=== PATIENT | female | born 1985 | race Caucasian/White ===

== ENCOUNTER 2019-04-18 06:04 | Inpatient (IN) ==
[2019-04-18] MEDS ORDERED: Famotidine 20 MG/2 ML VIAL IVP PRN (06:05)
[2019-04-18] MEDS ORDERED: Naloxone 0.4 MG/ML INJ IVP PRN (06:05)
[2019-04-18] MEDS ORDERED: Metoclopramide 10 MG/2 ML VIAL IVP PRN ×2 (06:05→11:38)
[2019-04-18] MEDS ORDERED: Ringers Solution, Lactated 1,000 ML IVC ONE (06:08)
[2019-04-18] MEDS ORDERED: Ringers Solution, Lactated 1,000 ML IVC SCH (06:15)
[2019-04-18] MEDS ORDERED: Ringers Solution, Lactated 1,000 ML ONE ×2 (06:22→07:52)
[2019-04-18 06:41] LABS: Hematocrit 34.3 % (35.3-44.9); Hemoglobin 11.7 g/dL (11.5-15.4); Immature Platelets 7.5 % (1.1-6.1); Mean Corpuscular HGB Conc 34.1 g/dL (31.6-35.5); Mean Corpuscular Hemoglobin 27.9 pg (28.0-33.3); Mean Corpuscular Volume 81.7 fL (83.0-100.0); Mean Platelet Volume 11.4 fL (9.4-12.4); Platelet Count 200 K/mcL (140-400); Red Cell Distribution Width 13.2 % (11.5-14.5); White Blood Count 7.9 K/mcL (4.3-11.1)
[2019-04-18 06:42] LABS: Basophils % 0.5 %; Eosinophils # 0.2 K/mcL (0.0-0.6); Immature Granulocytes % 0.6 % (0-4); Lymphocytes % 25.1 %; Monocytes # 0.5 K/mcL (0.0-1.3); Monocytes % 5.8 %; Neutrophils # 5.1 K/mcL (1.6-8.9)
[2019-04-18] MEDS ORDERED: CeFAZolin Premix DUPLEX 2,000 MG/50 ML BAG IVPB ONE (06:56)
[2019-04-18] MEDS ORDERED: *HR* Morphine Sulfate/PF 10 MG/10 ML AMPUL ONE (07:19)
[2019-04-18] MEDS ORDERED: EPHEDrine 50 MG/ML VIAL ONE (07:19)
[2019-04-18] MEDS ORDERED: *HR* FentaNYL (PF) 100 MCG/2 ML VIAL ONE (07:19)
[2019-04-18] MEDS ORDERED: *HR* Phenylephrine 10 MG/ML VIAL ONE (07:20)
[2019-04-18] MEDS ORDERED: Ondansetron 4 MG/2 ML VIAL ONE (07:20)
[2019-04-18] MEDS ORDERED: *HR* Oxytocin 10 UNIT/ML VIAL IM ONE (07:20)
[2019-04-18] MEDS ORDERED: Ondansetron 4 MG/2 ML VIAL IVP ONE (07:37)
[2019-04-18] MEDS ORDERED: *HR* Promethazine 25 MG/ML VIAL IVP PRN (07:37)
[2019-04-18] MEDS ORDERED: Ketorolac 30 MG/ML VIAL IVP ONE (07:37)
[2019-04-18] MEDS ORDERED: *HR* OxyCODONE Immed Rel 5 MG TABLET PO PRN (07:37)
[2019-04-18] MEDS ORDERED: *HR* HYDROmorphone (PF) 1 MG/ML SYRINGE IVP PRN (07:37)
[2019-04-18 07:44] LABS: Amphetamine Screen,Urine Negative ng/mL (Cutoff=1000); Barbiturate Screen,Urine Negative ng/mL (Cutoff=200); Benzodiazepines Screen,Urine Negative ng/mL (Cutoff=200); Cannabinoid Screen,Urine Negative ng/mL (Cutoff = 50); Cocaine Screen,Urine Negative ng/mL (Cutoff= 300); Opiate Screen,Urine Negative ng/mL (Cutoff=300); Phencyclidine Screen,Urine Negative ng/mL (Cutoff=25)
[2019-04-18] MEDS ORDERED: Bupivacaine/EPI 1:200k 0.25%PF 10 ML VIAL INFILT ONE (09:07)
[2019-04-18] MEDS ORDERED: Ketorolac 30 MG/ML VIAL ONE (09:09)
[2019-04-18] MEDS ORDERED: Oxytocin 20 units/ LR 1000 mL 20 UNIT/1,000 ML BAG IVC ONE (09:36)
[2019-04-18] MEDS ORDERED: Ondansetron 4 MG/2 ML VIAL IVP PRN (11:38)
[2019-04-18] MEDS ORDERED: Oxytocin 20 units/ LR 1000 mL 20 UNIT/1,000 ML BAG IVC SCH (11:38)
[2019-04-18] MEDS ORDERED: Rho Immune Globulin 1,500 UNIT SYRINGE IM ONE (11:38)
[2019-04-18] MEDS ORDERED: Sennosides 8.6 MG TABLET PO PRN (11:38)
[2019-04-18] MEDS: Acetaminophen 325 MG TABLET PO SCH ×2 (12:07→18:05)
[2019-04-18] MEDS: *HR* OxyCODONE/APAP 5/325 TABLET PO PRN ×2 (14:50→20:26)
[2019-04-18] MEDS: Simethicone 80 MG TAB.CHEW PO SCH ×2 (14:51→20:26)
[2019-04-18] MEDS: Ketorolac 30 MG/ML VIAL IVP SCH ×2 (15:50→18:51)
[2019-04-19] MEDS: *HR* OxyCODONE/APAP 5/325 TABLET PO PRN ×5 (00:37→22:27)
[2019-04-19] MEDS: Acetaminophen 325 MG TABLET PO SCH ×4 (00:37→21:09)
[2019-04-19] MEDS: Ketorolac 30 MG/ML VIAL IVP SCH (02:32)
[2019-04-19 07:01] LABS: Basophils % 0.4 %; Eosinophils # 0.3 K/mcL (0.0-0.6); Eosinophils % 4.6 %; Hematocrit 28.1 % (35.3-44.9); Immature Granulocytes % 0.5 % (0-4); Lymphocytes # 1.5 K/mcL (0.6-4.6); Lymphocytes % 19.5 %; Mean Corpuscular HGB Conc 32.7 g/dL (31.6-35.5); Mean Corpuscular Hemoglobin 27.5 pg (28.0-33.3); Mean Corpuscular Volume 84.1 fL (83.0-100.0); Mean Platelet Volume 10.9 fL (9.4-12.4); Monocytes # 0.6 K/mcL (0.0-1.3); Monocytes % 7.5 %; Platelet Count 197 K/mcL (140-400); Red Blood Count 3.34 M/mcL (3.82-4.97); Red Cell Distribution Width 13.2 % (11.5-14.5); Segmented Neutrophils % 67.5 %; White Blood Count 7.4 K/mcL (4.3-11.1)
[2019-04-19 07:03] LABS: Hemoglobin 9.2 g/dL (11.5-15.4)
[2019-04-19] MEDS: Prenatal Vit/FA 1 EACH TABLET PO SCH (09:00)
[2019-04-19] MEDS: Ibuprofen 600 MG TABLET PO SCH ×3 (09:00→21:12)
[2019-04-19] MEDS: Simethicone 80 MG TAB.CHEW PO SCH ×3 (09:39→21:10)
[2019-04-20] MEDS: *HR* OxyCODONE/APAP 5/325 TABLET PO PRN ×2 (03:05→09:33)
[2019-04-20] MEDS: Ibuprofen 600 MG TABLET PO SCH ×2 (03:05→09:32)
[2019-04-20] MEDS: Acetaminophen 325 MG TABLET PO SCH (06:34)
[2019-04-20 07:44] VITALS: BP 129/72
[2019-04-20] MEDS: Prenatal Vit/FA 1 EACH TABLET PO SCH (09:32)
[2019-04-20] MEDS: Simethicone 80 MG TAB.CHEW PO SCH (09:32)
== END 2019-04-20 13:00 | disposition home or self-care (01) | DRG 539 ==
LOC: 1NENULAB 06:04 → 1NENUOBS 11:26
PROVIDERS: ADMIT Obstetrics & Gynecology; ATTEND Obstetrics & Gynecology